=== PATIENT | female | born 1995 | race African-American/Black ===

== ENCOUNTER 2020-05-08 06:51 | Outpatient (NON) | payer OTHER, SELFPAY ==
[2020-05-08 17:22] LABS: SARS-CoV-2 RNA PCR Negative
== END 2020-05-08 06:52 ==
LOC: ANHCOVIDDT 06:58
PROVIDERS: PCP Physician Assistant; Visit Provider Physician Assistant
DX: R09.89 Other specified symptoms and signs involving the circulatory and respiratory systems (principal); Z20.828 Contact with and (suspected) exposure to other viral communicable diseases
CPT/HCPCS: 87635; C9803; U0003

== ENCOUNTER 2020-05-19 07:29 | Outpatient (CLI) | payer OTHER, SELFPAY ==
--- NOTE | 2020-06-04 10:46 | P.SLEEP_ITS ---
Sleep Study - Home Unattended Date of Study: 05/19/20 Ordering Provider: Interpreting Physician: Home Sleep Study Type: Watch PAT Height: 1.57 m Weight: 171.912 kg Body Mass Index: 69.2 Neck Circumference (inches): 19 [place]: 12 Reason for Sleep Study hypersomnia Sleep History excessive sleepiness. [place] score of 12. PMFSH Past Medical History Medical History (Updated 12/27/19 @ 10:32 by Sybil Roblero MD) Anemia Anxiety Bipolar 1 disorder Chronic shortness of breath Hypersomnia Morbid obesity Unspecified asthma Surgical History Surgical History (Updated 12/27/19 @ 10:19 by Sybil Roblero MD) History of tonsillectomy Family History Family History (Updated 08/18/16 @ 11:53 by DOCTOR UNKNOWN) Mother Diabetes mellitus Other Family history of malignant neoplasm Hypertension Social History Social History (Updated 12/27/19 @ 10:21 by Sybil Roblero MD) Social History: not employed, lives with her girlfriend Nevaeh, mother, grandmother, sister/ sister's girlfriend, 2 dogs and 4 rabbits, several family members smoke cigarettes Smoking status: Never smoker Alcohol intake: current Medications Home Medications Medication Instructions Recorded Confirmed Type albuterol sulfate 2.5 mg INHALATION Q6H 12/27/19 History albuterol sulfate 90 mcg/actuation 1 inhalation INHALATION Q4H PRN 30 12/27/19 12/27/19 Rx aerosol inhaler Days #8.5 gm budesonide-formoterol HFA 160 2 puff INHALATION Q12H 30 Days 12/27/19 12/27/19 Rx mcg-4.5 mcg/actuation aerosol #10.2 gm inhaler cholecalciferol (vitamin D3) 25 25 mcg PO DAILY 12/27/19 History mcg (1,000 unit) capsule montelukast 10 mg tablet 10 mg PO .hs 30 Days #30 tablet 03/05/20 Rx Sleep Procedure The home study was performed using watch pat device. Sleep Architecture Sleep study time 9: hours and 14 minutes. Total sleep time 8 hours and 3 minutes. Percentage of REM sleep 12.3%. Respiratory Analysis The respiratory indices-- AHI 16, RDI 25. RDI during REM sleep was 18.0 and non-REM sleep was 1.3. Supine events were more frequent as was the snoring. Oximetry Data Mean oxygen saturation was 97 minimum oxygen saturation 89. Desaturation index 16. Again desaturation was more common in REM sleep. Snoring Profile Snoring was present intermittently. As noted more common in supine sleep and during REM sleep. Cardiac Profile Pulse rate mean 80. Range 57 to 112. Assessment and Plan Additional Plan This 24-year-old female who has morbid obesity exhibits [id number] sleep disorder of obstructive type. The disorder is worse in supine REM sleep. Depending upon her daytime symptomatology and comorbid conditions consideration should be given to having this patient return for a full night polysomnographic evaluation. Given her morbid obesity also consider ruling out obesity hypoventilation syndrome. The treatment of this syndrome would require positive pressure assistance. Other measures such as aggressive weight loss, correction of upper airway obstruction if present and proper sleep hygiene will be off additional help.
--- NOTE | 2020-06-05 11:11 | P.SLEEP_ITS ---
[facility] Past Medical History Medical History (Updated 12/27/19 @ 10:32 by Sybil Roblero MD) Anemia Anxiety Bipolar 1 disorder Chronic shortness of breath Hypersomnia Morbid obesity Unspecified asthma Surgical History Surgical History (Updated 12/27/19 @ 10:19 by Sybil Roblero MD) History of tonsillectomy Family History Family History (Updated 08/18/16 @ 11:53 by DOCTOR UNKNOWN) Mother Diabetes mellitus Other Family history of malignant neoplasm Hypertension Social History Social History (Updated 12/27/19 @ 10:21 by Sybil Roblero MD) Social History: not employed, lives with her girlfriend Nevaeh, mother, grandmother, sister/ sister's girlfriend, 2 dogs and 4 rabbits, several family members smoke cigarettes Smoking status: Never smoker Alcohol intake: current Medications Home Medications Medication Instructions Recorded Confirmed Type albuterol sulfate 2.5 mg INHALATION Q6H 12/27/19 History albuterol sulfate 90 mcg/actuation 1 inhalation INHALATION Q4H PRN 30 12/27/19 12/27/19 Rx aerosol inhaler Days #8.5 gm budesonide-formoterol HFA 160 2 puff INHALATION Q12H 30 Days 12/27/19 12/27/19 Rx mcg-4.5 mcg/actuation aerosol #10.2 gm inhaler cholecalciferol (vitamin D3) 25 25 mcg PO DAILY 12/27/19 History mcg (1,000 unit) capsule montelukast 10 mg tablet 10 mg PO .hs 30 Days #30 tablet 03/05/20 Rx
[2020-06-05 11:58] VITALS: BMI 69.2
== END 2020-05-19 07:30 | disposition home or self-care (01) ==
LOC: ANHCSM 07:30
PROVIDERS: PCP Physician Assistant; Visit Provider Internal Medicine Critical Care Medicine
DX: G47.10 Hypersomnia, unspecified (principal)
CPT/HCPCS: 95800

== ENCOUNTER 2021-05-13 14:20 | Emergency (ER) | payer OTHER, SELFPAY ==
--- NOTE | ~2021-05-13 | XR_ITS ---
EXAMINATION: XR chest 2V DATE: 05/13/2021 16:01 INDICATION: Chronic cough and weakness TECHNIQUE: AP and lateral views of the chest are obtained. COMPARISON: 09/07/2017 FINDINGS: There are airspace opacities of the right middle and lower lobes. No pleural effusion or pn eumothorax is identified. The cardiomediastinal silhouette is normal. The visualized osseous structur es are unremarkable. IMPRESSION: 1. Right middle and lower lobe airspace opacities, likely pneumonia. Reviewed, dictated and finalized at location B. INE DISPATCHER
[2021-05-13 14:23] VITALS: BP 142/87; PULSE 82; RESP 20; TEMP 36.1; O2SAT 100
--- NOTE | 2021-05-13 15:09 | ECG_ITS ---
Measurements Intervals [place] Rate: 77 P: 36 GA: 161 QRS: 18 QRSD: 96 T: 0 QT: 372 QTc: 422 Interpretive Statements SINUS RHYTHM WITH SINUS ARRHYTHMIA NONSPECIFIC T-WAVE ABNORMALITY- ANTEROLAT/INF LEADS BASELINE ARTIFACT- I, II, III, AVR, AVL BORDERLINE ECG Electronically Signed On 05-13-2021 15:14:49 CLINICAL SERVICES SPECIALIST by Al Ojeda D.O.
--- NOTE | 2021-05-13 15:37 | ED.WEAKNESS ---
HPI - Weakness General Chief complaint: Weakness Stated complaint: weakness Time Seen by Provider: 05/13/21 15:25 Source: patient Mode of arrival: ambulatory Limitations: no limitations History of Present Illness HPI Narrative: This is a 25 year old female that presents to the ER for multiple complaints. Reports generalized weakness, abdominal pain, shortness of breath, dysuria, nausea and vomiting. Reports they have been ongoing for a couple of days. She was sent to the ED for further evaluation for blood work. Reports history of chronic anemia and that they were concerned she may need a transfusion. Denies fever, or chest pain. Related Data Home Medications Medication Instructions Recorded Confirmed albuterol sulfate 2.5 mg INHALATION Q6H 12/27/19 cholecalciferol (vitamin D3) 25 25 mcg PO DAILY 12/27/19 mcg (1,000 unit) capsule Allergies Allergy/AdvReac Type Severity Reaction Status Date / Time acetaminophen [From Vicodin] Allergy Mild rash Verified 12/27/19 09:13 codeine Allergy Mild Jittery Verified 12/27/19 09:13 hydrocodone [From Vicodin] Allergy Mild rash Verified 12/27/19 09:13 morphine Allergy Mild Itching Verified 12/27/19 09:13 oxycodone Allergy Mild Itching Verified 12/27/19 09:13 Review of Systems Review of Systems: CONSTITUTIONAL: Denies fever CARDIOVASCULAR: Denies chest pain, or edema. RESPIRATORY: Reports cough and dyspnea. GASTROINTESTINAL: Reports abdominal pain, nausea, vomiting GENITOURINARY: Reports dysuria NEUROLOGIC: Reports generalized weakness. All systems reviewed & are unremarkable except as noted in HPI and below PMFSH Past Medical History Medical History (Updated 05/13/21 @ 18:54 by Funmilayo Blankenship PA-C) Anemia Anxiety Bipolar 1 disorder Chronic shortness of breath Hypersomnia Morbid obesity Unspecified asthma Surgical History Surgical History (Updated 12/27/19 @ 10:19 by Sybil Roblero MD) History of tonsillectomy Family History Family History (Updated 08/18/16 @ 11:53 by DOCTOR UNKNOWN) Mother Diabetes mellitus Other Family history of malignant neoplasm Hypertension Social History Social History (Updated 12/27/19 @ 10:21 by Sybil Roblero MD) Social History: not employed, lives with her girlfriend Nevaeh, mother, grandmother, sister/ sister's girlfriend, 2 dogs and 4 rabbits, several family members smoke cigarettes Smoking status: Never smoker Alcohol intake: current Exam Narrative: GENERAL: Well-appearing, obese, and in no acute distress. HEAD: Normocephalic, atraumatic. EYES: PERRLA and EOMI. ENT: Nares clear, no rhinorrhea or epistaxis. Mucous membranes moist. Oropharynx without tonsillar hypertrophy exudate or other lesions. Bilateral TMs pearly parker non-bulging NECK: Supple. No adenopathy or masses. CHEST: Clear to auscultation. No respiratory distress. No wheezes rales or rhonchi HEART: Regular rate and rhythm. No murmur heard. Normal peripheral pulses. ABDOMEN: Soft, nontender, nondistended, normal active bowel sounds. No CVA tenderness EXTREMITIES: Normal range of motion. No edema. SKIN: Warm, dry, no rash. NEURO: No focal deficits. Alert and oriented x3. PSYCH: Normal mood and affect Course Vital Signs Vital signs: Vital Signs Temperature 96.9 F L 05/13/21 14:23 Pulse Rate 82 05/13/21 14:23 Respiratory Rate 20 05/13/21 14:23 Blood Pressure 142/87 H 05/13/21 14:23 Pulse Oximetry 100 05/13/21 14:23 Temperature 96.9 F L 05/13/21 14:23 Pulse Rate 82 05/13/21 14:23 Respiratory Rate 20 05/13/21 14:23 Blood Pressure 142/87 H 05/13/21 14:23 Pulse Oximetry 100 05/13/21 14:23 MDM - Weakness MDM Narrative Medical decision making narrative: Patient presents to the ER for generalized weakness. She is afebrile and nontoxic-appearing. Her vitals are stable. CBC is without leukocytosis. Does show microcytic anemia with hemoglobin of 10.7. Metabolic panel without concerning finding
[2021-05-13 15:54] LABS: Basophils Absolute Auto 0.1 K/mm3 (0.0-0.1); Basophils Percent Auto 0.7 % (0.2-1.2); Eosinophils Absolute Auto 0.2 K/mm3 (0-0.3); Eosinophils Percent Auto 1.6 % (0-4.4); Hematocrit 34.2 % (37.0-47.0); Hemoglobin 10.7 g/dL (12.0-15.0); Immature Granulocyte Absolute 0.03 K/mm3 (0.00-0.031); Immature Granulocyte Percent A 0.3 % (0-0.5); Lymphocytes Absolute Auto 3.49 K/mm3 (0.9-3.2); Lymphocytes Percent Auto 37.9 % (18.3-44.2); Mean Corpuscular HGB Conc 31.3 g/dl (32-36); Mean Corpuscular Hemoglobin 24.8 pg (26-34); Mean Corpuscular Volume 79.4 fl (80-100); Mean Platelet Volume 9.5 fl (7.4-10.4); Monocytes Absolute Auto 0.6 K/mm3 (0.1-0.6); Monocytes Percent Auto 6.1 % (2.6-8.5); Neutrophils Absolute Auto 4.9 K/mm3 (1.3-6.7); Neutrophils Percent Auto 53.4 % (45.5-73.1); Platelet Count Result 418 k/mm3 (150-375); Red Blood Count 4.31 M/mm3 (4.2-5.4); Red Cell Distribution Width 15.8 % (11.5-14.5); White Blood Count 9.2 K/mm3 (4.5-10.0)
[2021-05-13 16:12] LABS: Alanine Aminotransferase 16 U/L (4-35); Albumin Level 3.9 g/dL (3.5-5.1); Alkaline Phosphatase 57 U/L (38-126); Anion Gap 4 mmol/L (8-16); Aspartate Amino Transferase 23 U/L (14-36); Bilirubin,Total 0.4 mg/dL (0.2-1.3); Blood Urea Nitrogen 9 mg/dL (7-17); Calcium 8.8 mg/dL (8.4-10.2); Carbon Dioxide 30 mmol/L (22-30); Chloride 105 mmol/L (98-107); Estimated CRCL calculation 140 ml/min; Estimated Glomerular Filt Rate > 60; Glucose 102 mg/dL (65-110); Sodium 139 mmol/L (137-145)
[2021-05-13 16:33] LABS: Lipase 40 U/L (23-300)
[2021-05-13 16:43] LABS: NT Pro B Type Natriuretic Pept 85 pg/mL (5-100)
[2021-05-13 16:56] LABS: Add Urine Microscopic? YES; Appearance Urine Cloudy (Clear); Bacteria Urine Trace /hpf; Bilirubin Urine 1+ (Negative); Blood Urine Negative (Negative); Color Urine Yellow (Yellow); Glucose Urine UA Negative (Negative); Ketones Urine Negative (Negative); Leukocyte Esterase Ur Trace LEU/UL (Negative); Mucus Urine Few /lpf; Nitrate Urine Negative (Negative); Protein Urine 2+ mg/dL (Negative); Squamous Epithelial Cell Urine Many /hpf (Few); Urobilinogen Urine Negative mg/dL (<2.0)
[2021-05-13] MEDS: SODIUM CHLORIDE 0.9% IV 500 ML 999 ML IV CONT (16:56)
[2021-05-13] MEDS: ONDANSETRON INJ 4 MG/2 ML VIAL IV PUSH (16:56)
[2021-05-13 17:00] LABS: Specific Grav Ur 1.036 (1.001-1.035)
[2021-05-13 18:54] VITALS: BP 107/74; PULSE 63; RESP 16; O2SAT 100
[2021-05-13 19:31] VITALS: BP 119/86; PULSE 85; RESP 18; TEMP 36.6; O2SAT 100
== END 2021-05-13 19:34 | disposition home or self-care (01) ==
PROVIDERS: Emergency Medicine; Physician Assistant; Emergency Provider Emergency Medicine; PCP Physician Assistant
DX: J18.9 Pneumonia, unspecified organism (principal); D64.9 Anemia, unspecified; F41.9 Anxiety disorder, unspecified; F31.9 Bipolar disorder, unspecified; J45.909 Unspecified asthma, uncomplicated
CPT/HCPCS: 36415; 71046; 80053; 81001; 81025; 83690; 83880; 84443; 85025; 86850; 86900; 86901; 87086; 87088; 93005; 96361; 96374; 99284; J2405; J7040

== ENCOUNTER 2021-05-20 17:49 | Emergency (ER) | payer OTHER, SELFPAY ==
--- NOTE | ~2021-05-20 | XR_ITS ---
EXAMINATION: XR chest 2V DATE: 05/20/2021 18:32 INDICATION: Chest pain TECHNIQUE: frontal and lateral views of the chest were obtained. COMPARISON: Chest radiograph dated 05/13/2021 FINDINGS: The lungs remain clear with no focal airspace opacities, pulmonary edema, pleural effusion or pneumot horax. The cardiomediastinal silhouette is normal. Visualized bones and soft tissues are unremarkable . IMPRESSION: 1. No acute cardiopulmonary disease. Reviewed, dictated and finalized at location A. ARE ELIGIBILITY INTERVIEWER
--- NOTE | 2021-05-20 17:59 | ECG_ITS ---
Measurements Intervals [place] Rate: 89 P: 31 SD: 139 QRS: 19 QRSD: 91 T: 0 QT: 351 QTc: 428 Interpretive Statements SINUS RHYTHM WITH SINUS ARRHYTHMIA DELAYED PRECORDIAL R/S TRANSITION BORDERLINE T WAVE ABNORMALITY- INFERIOR LEADS BASELINE WANDER- V3 BORDERLINE ECG Electronically Signed On 05-20-2021 19:54:14 PANELBOARD OPERATOR by Al Ojeda D.O.
[2021-05-20 18:00] VITALS: BP 141/89; PULSE 92; RESP 22; TEMP 36.8; O2SAT 100
[2021-05-20] MEDS: KETOROLAC 30 MG/ML VIAL (*BKC) IV PUSH (18:40)
[2021-05-20 18:53] LABS: Hematocrit 35.5 % (37.0-47.0); Hemoglobin 11.1 g/dL (12.0-15.0); Mean Corpuscular HGB Conc 31.3 g/dl (32-36); Mean Platelet Volume 9.7 fl (7.4-10.4); Platelet Count Result 479 k/mm3 (150-375); Red Blood Count 4.44 M/mm3 (4.2-5.4); Red Cell Distribution Width 15.7 % (11.5-14.5); White Blood Count 13.2 K/mm3 (4.5-10.0)
[2021-05-20 18:58] LABS: Prothrombin Time 13.2 Seconds (11.1-14.7)
[2021-05-20 18:59] LABS: Partial Thromboplastin Time 28.1 SECONDS (22.3-36.8)
[2021-05-20 19:00] LABS: Anion Gap 7 mmol/L (8-16); Blood Urea Nitrogen 6 mg/dL (7-17); Carbon Dioxide 26 mmol/L (22-30); Chloride 101 mmol/L (98-107); Estimated CRCL calculation 153 ml/min; Estimated Glomerular Filt Rate > 60; Glucose 98 mg/dL (65-110); Potassium 4.2 mmol/L (3.4-5.0); Sodium 134 mmol/L (137-145)
[2021-05-20 19:13] LABS: Troponin I < 0.012 ng/mL (0.000-0.034)
[2021-05-20 19:28] LABS: Lymphocytes Absolute Manual 3.69 K/mm3 (1.1-4.5); Lymphocytes Percent Manual 28 % (18-44); Monocytes Absolute Manual 1.18 K/mm3 (0.1-0.90); Monocytes Percent Manual 9 % (3-9); Neutrophils Percent Manual 63 % (46-73); Platelet Estimate Adequate (Adequate); Total Cells Counted 100
--- NOTE | 2021-05-20 19:46 | ED.GENADULT ---
HPI - General Adult General Chief complaint: Shortness of Breath/Dyspnea Stated complaint: Chest pain Time Seen by Provider: 05/20/21 17:51 History of Present Illness HPI narrative: Patient is a 25-year-old female who presents ER with chest pain. Center of her chest. Worse with coughing and palpation. Recently diagnosed with pneumonia and had been on Augmentin and azithromycin. No decrease in her ability to breathe. Reports she still had some fevers. Patient reports she has no nausea vomiting or abdominal discomfort. No new rash. Patient has been taking 200 mg ibuprofen 4 times a day without relief of pain. Related Data Home Medications Medication Instructions Recorded Confirmed albuterol sulfate 2.5 mg INHALATION Q6H 12/27/19 cholecalciferol (vitamin D3) 25 25 mcg PO DAILY 12/27/19 mcg (1,000 unit) capsule Allergies Allergy/AdvReac Type Severity Reaction Status Date / Time acetaminophen [From Vicodin] Allergy Mild rash Verified 12/27/19 09:13 codeine Allergy Mild Jittery Verified 12/27/19 09:13 hydrocodone [From Vicodin] Allergy Mild rash Verified 12/27/19 09:13 morphine Allergy Mild Itching Verified 12/27/19 09:13 oxycodone Allergy Mild Itching Verified 12/27/19 09:13 Review of Systems Review of Systems: All systems reviewed & are unremarkable except as noted in HPI and below Constitutional: Constitutional: Denies chills, Reports fatigue and Reports fever(s) ENT: Denies nasal congestion and Denies sore throat Cardiovascular: Cardiovascular: Reports chest pain, Denies rapid heart rate and Denies radiating jaw, neck or arm pain Respiratory: Respiratory: Reports cough, Denies dyspnea and Denies wheezing Gastrointestinal: Gastrointestinal: Denies abdominal pain, Denies diarrhea, Denies nausea and Denies vomiting Neurologic: Denies headache(s), Denies focal weakness and Denies numbness PMFSH Past Medical History Medical History (Updated 05/20/21 @ 19:52 by Nestor Fletcher MD) Anemia Anxiety Bipolar 1 disorder Chronic shortness of breath Hypersomnia Morbid obesity Unspecified asthma Surgical History Surgical History (Updated 12/27/19 @ 10:19 by Sybil Roblero MD) History of tonsillectomy Family History Family History (Updated 08/18/16 @ 11:53 by DOCTOR UNKNOWN) Mother Diabetes mellitus Other Family history of malignant neoplasm Hypertension Social History Social History (Updated 12/27/19 @ 10:21 by Sybil Roblero MD) Social History: not employed, lives with her girlfriend Nevaeh, mother, grandmother, sister/ sister's girlfriend, 2 dogs and 4 rabbits, several family members smoke cigarettes Smoking status: Never smoker Alcohol intake: current Exam Narrative: GENERAL: Well-appearing, morbidly obese, and in no acute distress. HEAD: Normocephalic, atraumatic. ENT: Mucous membranes moist. CHEST: Clear to auscultation. No respiratory distress. Tender palpation of her central chest with light palpation. HEART: Regular rate and rhythm. Normal peripheral pulses. ABDOMEN: Soft, nontender, nondistended. EXTREMITIES: Normal range of motion. No edema. SKIN: Warm, dry, no rash. NEURO: Alert and oriented x3. PSYCH: Normal mood and affect. Course Course Emergency Course: Pain decreased with Toradol. Informed results. Discharge home. Symptoms felt to be musculoskeletal in nature related to her coughing. No evidence of ischemia on EKG. Vital Signs Vital signs: Vital Signs Temperature 98.2 F 05/20/21 18:00 Pulse Rate 92 05/20/21 18:00 Respiratory Rate 22 H 05/20/21 18:00 Blood Pressure 141/89 H 05/20/21 18:00 Pulse Oximetry 100 05/20/21 18:00 Temperature 98.2 F 05/20/21 18:00 Pulse Rate 92 05/20/21 18:00 Respiratory Rate 22 H 05/20/21 18:00 Blood Pressure 141/89 H 05/20/21 18:00 Pulse Oximetry 100 05/20/21 18:00 Medical Decision Making Vital Signs Vital Signs: Vital Signs Temperature 98.2 F 05/20/21 18:00
[2021-05-20 20:17] VITALS: BP 135/76; PULSE 85; RESP 16; O2SAT 100
== END 2021-05-20 20:04 | disposition home or self-care (01) ==
PROVIDERS: Emergency Provider Emergency Medicine; PCP Physician Assistant
DX: R07.89 Other chest pain (principal); F41.9 Anxiety disorder, unspecified; F31.9 Bipolar disorder, unspecified; J45.909 Unspecified asthma, uncomplicated
CPT/HCPCS: 36415; 71046; 80048; 84484; 85025; 85610; 85730; 93005; 96374; 99284; J1885

== ENCOUNTER 2021-07-13 13:25 | Emergency (ER) | payer OTHER, SELFPAY ==
[2021-07-13 13:37] VITALS: BP 143/83; PULSE 115; RESP 18; TEMP 37.8; O2SAT 100
--- NOTE | 2021-07-13 13:59 | ED.URI ---
HPI - URI/Sore Throat General Chief Complaint: Upper Respiratory Infection Stated Complaint: sore throat Time Seen by Provider: 07/13/21 14:06 Source: patient Mode of arrival: ambulatory Limitations: no limitations History of Present Illness HPI Narrative: 25-year-old female presenting for complaint of sore throat for about 3 days she also endorses fever from 100-102, occasional cough and hoarse voice with sinus congestion. She has a history of strep. Has been taking Mucinex and Tylenol for symptoms. Denies shortness of breath, chest pain, palpitations, nausea, vomiting, diarrhea. She is vaccinated for COVID and waiting for her booster. denies sick contacts. MD elicited complaint: cough and sore throat Related Data Home Medications Medication Instructions Recorded Confirmed cholecalciferol (vitamin D3) 25 25 mcg PO DAILY 12/27/19 07/13/21 mcg (1,000 unit) capsule Allergies Allergy/AdvReac Type Severity Reaction Status Date / Time acetaminophen [From Vicodin] Allergy Mild rash Verified 07/13/21 13:52 codeine Allergy Mild Jittery Verified 07/13/21 13:52 hydrocodone [From Vicodin] Allergy Mild rash Verified 07/13/21 13:52 morphine Allergy Mild Itching Verified 07/13/21 13:52 oxycodone Allergy Mild Itching Verified 07/13/21 13:52 Review of Systems Review of Systems: CONSTITUTIONAL: Endorses malaise, chills, sweats, fever. EYES: Denies visual changes, redness, or discharge. ENT: Reports rhinorrhea, congestion, sinus pain, otalgia and sore throat. CARDIOVASCULAR: Denies chest pain, palpitations, or edema. RESPIRATORY: Reports cough, post nasal drainage. Denies dyspnea. GASTROINTESTINAL: Denies abdominal pain, nausea, vomiting, diarrhea SKIN: Denies rash or itching. MUSCULOSKELETAL: Denies myalgia. NEUROLOGIC: Denies headache. [facility] Past Medical History Medical History Anemia Anxiety Bipolar 1 disorder Chronic shortness of breath Diabetes Headache, migraine Hypersomnia Morbid obesity Unspecified asthma Surgical History Surgical History History of tonsillectomy Family History Family History Mother Diabetes mellitus Other Alcoholism Anxiety Cancer Depression Family history of malignant neoplasm Hypertension Social History Social History Social History: not employed, lives with her girlfriend Nevaeh, mother, grandmother, sister/ sister's girlfriend, 2 dogs and 4 rabbits, several family members smoke cigarettes Smoking status: Never smoker Alcohol intake: current Comments At time of signature, I have reviewed and agree with nursing past medical, surgical, social and family history unless otherwise noted. Please see nursing chart for further information. There is no relevant family history pertinent to the presenting complaint Exam Narrative: GENERAL: Ill-appearing, no acute distress. HEAD: Normocephalic EYES: PERRLA, conjunctivae clear ENT: Mucous membranes moist. TM pearly parker with dull light reflex bilaterally, bilat effusions; no tragal tenderness. Oropharynx erythematous without lesions. Tonsils enlarged and without exudate, no drooling, no hoarseness, no trismus, uvula midline. NECK: Supple. left anterior cervical lymphadenopathy CHEST: Clear to auscultation, breath sounds equal. No wheezing, rhonchi, rales, or stridor. No respiratory distress, speaks in full sentences. HEART: Regular rate and rhythm. No murmur heard. SKIN: Warm, dry, no rash. NEURO: Alert and oriented x3. PSYCH: Normal mood and affect Course Course Emergency Course: Strep negative. Patient is aware of diagnosis, understands and agrees to treatment plan. Anticipatory guidance given. Patient agrees to follow-up as directed and is aware of reasons to seek care at the emergency
[2021-07-13 14:35] LABS: Glucose Point of Care 93 mg/dl (65-105)
--- NOTE | 2021-07-13 15:45 | PC.NURSE ---
1420- addendum-- pt passed out while in girlfriends treatment room while another RN was in discharging the girlfriend, pt became lightheaded and diaphoretic, and then laid her head over to the girlfriend. Other RN grabbed the PATIENT CARE and ems called since she was already discharged from our care. pt after approx 30 secs opened eyes, stated that she was just a little bit dizzy feeling and stated that she had not eaten most of the day. ems coming through the back door, since they were across the street when paged out. pt left in care of ems in AxOx3 condition. we didnt do a transfer since she was already discharged from our care.
== END 2021-07-13 14:14 | disposition home or self-care (01) ==
PROVIDERS: Emergency Provider Nurse Practitioner Family
DX: J00 Acute nasopharyngitis [common cold] (principal); J01.90 Acute sinusitis, unspecified; E11.9 Type 2 diabetes mellitus without complications; E66.01 Morbid (severe) obesity due to excess calories; Z68.44 Body mass index [BMI] 60.0-69.9, adult; J45.909 Unspecified asthma, uncomplicated
CPT/HCPCS: 82948; 87081; 87880; 99213; G0463

== ENCOUNTER 2021-07-13 15:04 | Emergency (ER) | payer OTHER, SELFPAY ==
--- NOTE | 2021-07-13 15:09 | PC.NURSE ---
pt made aware of dept status. i dont know if i want to wait that long
[2021-07-13 15:14] VITALS: BP 141/77; PULSE 96; RESP 17; TEMP 36.6; O2SAT 100
== END 2021-07-13 15:09 | disposition left against medical advice (07) ==
DX: R55 Syncope and collapse (principal)
CPT/HCPCS: 99199

== ENCOUNTER 2021-08-12 01:44 | Day surgery (SDC) | payer OTHER, SELFPAY ==
[2021-08-10 13:03] VITALS: BMI 67.9
[2021-08-12 07:29] VITALS: BP 128/87; PULSE 87; RESP 17; TEMP 36; O2SAT 99; BMI 70.1
[2021-08-12] MEDS: LACTATED RINGERS 1,000 ML 150 ML IV CONT (07:31)
--- NOTE | 2021-08-12 08:07 | WPDANESEPPF ---
Anes - Initial Pre Proc Eval Procedure: Operation Date: 08/12/21 08:30 Proposed Procedures p Esophagogastroduodenoscopy - Александр Gimenez MD Date/Time: 08/12/21 08:08 Surgeon: Александр Gimenez MD Pre Op Diagnosis: GERD Patient Data Age: 25 Gender: F Height: 1.57 m Weight: 174 kg Last Vital Signs Temp 96.8 F L 08/12/21 07:29 Pulse 87 08/12/21 07:29 Resp 17 08/12/21 07:29 BP 128/87 08/12/21 07:29 Pulse Ox 99 08/12/21 07:29 Allergies Allergy/AdvReac Type Severity Reaction Status Date / Time acetaminophen [From Vicodin] Allergy Mild rash Verified 08/12/21 07:27 codeine Allergy Mild Jittery Verified 08/12/21 07:27 hydrocodone [From Vicodin] Allergy Mild rash Verified 08/12/21 07:27 morphine Allergy Mild Itching Verified 08/12/21 07:27 oxycodone Allergy Mild Itching Verified 08/12/21 07:27 Home Medications Medication Instructions Recorded Confirmed Type famotidine [Pepcid] 40 mg PO DAILY 08/10/21 08/12/21 History ondansetron 8 mg TRANSLINGUAL Q4-6H 08/10/21 08/12/21 History Patient hx anesthesia problems: none Family hx anesthesia problems: none Results Review: All pre-operative results and documents have been reviewed as part of the pre-operative evaluation. [facility] Past Medical History Medical History Anemia Anxiety Bipolar 1 disorder Chronic shortness of breath Diabetes Headache, migraine Hypersomnia Morbid obesity Unspecified asthma Surgical History Surgical History History of tonsillectomy Family History Family History Mother Diabetes mellitus Other Alcoholism Anxiety Cancer Depression Family history of malignant neoplasm Hypertension Social History Social History Social History: not employed, lives with her girlfriend Nevaeh, mother, grandmother, sister/ sister's girlfriend, 2 dogs and 4 rabbits, several family members smoke cigarettes Smoking status: Former smoker Tobacco type: e-cigarettes/vaping Alcohol intake: current Drinks per week: 2 Substance use: never Substance use type: does not use Living arrangements: with family Spiritual care concerns: No Anes - Eval Final PreProcedure Day of Procedure 08/12/21 08:08 Patient weight: super morbidly obese (super super morbid obesity) Heart: regular rate and rhythm Lungs: clear to auscultation Airway: Mallampati scale class III Neurological: alert and oriented Last oral intake: >/= 8 hours ASA classification: IV Emergent: no Anesthetic plan: proceed Anesthesia type and monitoring: general GIVS and standard monitoring Results Review: All pre-operative results and documents have been reviewed as part of the pre-operative evaluation. Informed Consent: The patient's anesthetic plan and its attendant risks and benefits were discussed with the patient/family/POA. Questions were solicited and answers provided to the satisfaction of the patient/family/POA.
--- NOTE | 2021-08-12 08:24 | PM.HPGS ---
History of Present Illness History of Present Illness Consent: Risks, benefits, and alternatives have been discussed and questions answered. Patient agrees to proceed with procedure. Chief complaint: GERD Narrative: Jessica Flores is a 25 year old female with morbid obesity, DM here with nausea using pepcid and zofran as needed, never had egd Review of Systems Constitutional: Constitutional: Denies headache(s) and Denies weakness Eyes: Eyes: Denies blurry vision ENT: Reports Normal hearing present, Denies headache(s) and Denies neck pain Cardiovascular: Cardiovascular: Denies chest pain and Denies dyspnea Respiratory: Respiratory: Denies dyspnea Gastrointestinal: Gastrointestinal: Reports no additional gastrointestinal complaints Genitourinary: Genitourinary: Denies dysuria Musculoskeletal: Musculoskeletal: Denies neck pain Integumentary/Breasts: Skin/Breast: Denies dry skin Neurologic: Reports Normal hearing present, Denies headache(s) and Denies weakness Psychiatric: Psychiatric: Denies anxiety Endocrine: Endocrine: Denies change in body appearance Hematologic/Lymphatic: Hematologic/Lymphatic: Denies easy bleeding Allergic/Immunologic: Allergic/Immunologic: Denies urticaria PMFSH Past Medical History Medical History (Updated 08/12/21 @ 08:25 by Александр Gimenez MD) Anemia Anxiety Bipolar 1 disorder Chronic shortness of breath Diabetes Headache, migraine Hypersomnia Morbid obesity Nausea Unspecified asthma Surgical History Surgical History History of tonsillectomy Family History Family History Mother Diabetes mellitus Other Alcoholism Anxiety Cancer Depression Family history of malignant neoplasm Hypertension Social History Social History Social History: not employed, lives with her girlfriend Nevaeh, mother, grandmother, sister/ sister's girlfriend, 2 dogs and 4 rabbits, several family members smoke cigarettes Smoking status: Former smoker Tobacco type: e-cigarettes/vaping Alcohol intake: current Drinks per week: 2 Substance use: never Substance use type: does not use Living arrangements: with family Spiritual care concerns: No Meds Home Medications and Allergies Home Medications Medication Instructions Recorded Confirmed Type famotidine [Pepcid] 40 mg PO DAILY 08/10/21 08/12/21 History ondansetron 8 mg TRANSLINGUAL Q4-6H 08/10/21 08/12/21 History Allergies Allergy/AdvReac Type Severity Reaction Status Date / Time acetaminophen [From Vicodin] Allergy Mild rash Verified 08/12/21 07:27 codeine Allergy Mild Jittery Verified 08/12/21 07:27 hydrocodone [From Vicodin] Allergy Mild rash Verified 08/12/21 07:27 morphine Allergy Mild Itching Verified 08/12/21 07:27 oxycodone Allergy Mild Itching Verified 08/12/21 07:27 Vital Signs Vital Signs - 24 hr 08/12/21 07:29 Temperature 96.8 F L Pulse Rate 87 Respiratory Rate 17 Blood Pressure 128/87 Pulse Oximetry 99 Exam Const: General: comfortable and no acute distress Nutritional Appearance: obese HENMT: General nose exam: Normal nares present Eyes: General: appearance normal, both eyes and all related structures Neck: Neck: no JVD Resp: Auscultation: clear to auscultation bilaterally Cardio: Rate: regular rate Rhythm: regular rhythm GI: Inspection: non-distended GI Palp: Yes Soft to palpation Skin: General skin exam: normal color Neuro: General: gait normal Speech: normal speech Extrem: General: normal to inspection Psych: Mental Status: mental status grossly normal Assessment and Plan Assessment and plan (1) Nausea: Code(s): R11.0 - Nausea Status: Acute Assessment and Plan: egd with bx, assess if esophagitis, ulcers also could be from dysmotility,
[2021-08-12 09:00] VITALS: BP 115/74; PULSE 91; RESP 23; O2SAT 98
[2021-08-12 09:10] VITALS: BP 118/77; PULSE 86; RESP 19; O2SAT 99
[2021-08-12 09:20] VITALS: BP 120/66; PULSE 71; RESP 22; O2SAT 100
== END 2021-08-12 09:35 | disposition home or self-care (01) ==
PROVIDERS: PCP Family Medicine; Visit Provider Internal Medicine Gastroenterology
PROC: 0DJ08ZZ Inspection of Upper Intestinal Tract, Via Natural or Artificial Opening Endoscopic (ICD-10-PCS; CPT 43235; principal; 2021-08-12 08:30)
DX: K29.50 Unspecified chronic gastritis without bleeding (principal); E11.9 Type 2 diabetes mellitus without complications; Z87.891 Personal history of nicotine dependence; E66.01 Morbid (severe) obesity due to excess calories; Z68.45 Body mass index [BMI] 70 or greater, adult
CPT/HCPCS: 43239; 88305; J2704; J7120

== ENCOUNTER 2022-03-17 12:27 | Emergency (ER) | payer OTHER, SELFPAY ==
[2022-03-17] VITALS (9 sets, daily range): BP systolic 90–150; BP diastolic 54–100; PULSE 82–96; RESP 15–22; TEMP 37; O2SAT 96–100
--- NOTE | ~2022-03-17 | US_ITS ---
EXAMINATION: US pelvic complete w TV DATE: 03/17/2022 16:48 INDICATION: Vaginal bleeding. TECHNIQUE: Multiple transabdominal and transvaginal sonographic images of the pelvis were obtained. COMPARISON: CT abdomen and pelvis 03/17/2022 FINDINGS: TRANSABDOMINAL ULTRASOUND: The uterus measures 7.3 x 2.9 x 4.4 cm. There is no free fluid in the pelvis. TRANSVAGINAL ULTRASOUND: The endometrial complex measures 5 mm in thickness. The right ovary measures 3.7 x 4.4 x 3.4 cm. Ther e is a 4.2 cm cyst with low-level echoes in right ovary. The left ovary measures 2.4 x 1.6 x 1.9 cm. There is normal vascular flow in the ovaries. IMPRESSION: 1. 4.2 cm hemorrhagic cyst in right ovary. Reviewed, dictated and finalized at location A.
--- NOTE | ~2022-03-17 | CT_ITS ---
EXAMINATION: CT abdomen pelvis w con DATE: 03/17/2022 15:04 INDICATION: Abdominal pain. Vaginal bleeding. TECHNIQUE: Computed tomography (CT) of the abdomen and pelvis was performed with 100 mL Omnipaque 350 intravenous contrast. Automated exposure control and iterative reconstruction technique were employe d. The dose-length product was 1598.79 mGy-cm. COMPARISON: CT abdomen and pelvis 07/30/2017 FINDINGS: The visualized portions of the lung bases are clear without pneumonia or pleural effusion. The heart size is normal. No pericardial effusion. The liver is normal. The gallbladder is absent. Th e spleen, pancreas, adrenal glands, and kidneys are normal. There is a 2.8 cm dominant follicle in ri ght ovary. There are no dilated loops of bowel. The appendix is not visualized. There are no patholog ically enlarged lymph nodes. There is no free intraperitoneal fluid. There is screw fixation of proxi mal right femur. IMPRESSION: 1. No specific etiology for the patient's symptoms. Reviewed, dictated and finalized at location A.
--- NOTE | 2022-03-17 12:34 | ECG_ITS ---
Measurements Intervals Allison Rate: 92 P: 39 IA: 142 QRS: 22 QRSD: 82 T: 1 QT: 345 QTc: 428 Interpretive Statements SINUS RHYTHM BORDERLINE T WAVE ABNORMALITY- INFERIOR LEADS BORDERLINE ECG COMPARED TO ECG 05/20/2021 18:02:24 NO SIGNIFICANT CHANGES Electronically Signed On 03-17-2022 14:36:20 CDT by Al Ojeda D.O.
[2022-03-17 12:53] LABS: Basophils Absolute Auto 0.1 K/mm3 (0.0-0.1); Basophils Percent Auto 0.5 % (0.2-1.2); Eosinophils Absolute Auto 0.1 K/mm3 (0-0.3); Eosinophils Percent Auto 0.7 % (0-4.4); Hematocrit 28.2 % (37.0-47.0); Hemoglobin 8.4 g/dL (12.0-15.0); Immature Granulocyte Absolute 0.04 K/mm3 (0.00-0.031); Immature Granulocyte Percent A 0.4 % (0-0.5); Lymphocytes Absolute Auto 3.45 K/mm3 (0.9-3.2); Lymphocytes Percent Auto 33.4 % (18.3-44.2); Mean Corpuscular HGB Conc 29.8 g/dl (32-36); Mean Corpuscular Hemoglobin 23.4 pg (26-34); Mean Corpuscular Volume 78.6 fl (80-100); Mean Platelet Volume 9.4 fl (7.4-10.4); Monocytes Absolute Auto 0.5 K/mm3 (0.1-0.6); Neutrophils Absolute Auto 6.2 K/mm3 (1.3-6.7); Platelet Count Result 412 k/mm3 (150-375); Red Blood Count 3.59 M/mm3 (4.2-5.4); Red Cell Distribution Width 16.1 % (11.5-14.5); White Blood Count 10.3 K/mm3 (4.5-10.0)
[2022-03-17 13:06] LABS: Alanine Aminotransferase 15 U/L (6-35); Alkaline Phosphatase 50 U/L (38-126); Anion Gap 11 mmol/L (8-16); Aspartate Amino Transferase 16 U/L (14-36); Bilirubin,Total 0.3 mg/dL (0.2-1.3); Blood Urea Nitrogen 9 mg/dL (7-17); Calcium 8.8 mg/dL (8.4-10.2); Carbon Dioxide 21 mmol/L (22-30); Chloride 105 mmol/L (98-107); Estimated CRCL calculation 168 ml/min; Estimated Glomerular Filt Rate > 60; Glucose 113 mg/dL (65-110); Sodium 137 mmol/L (137-145)
[2022-03-17 13:32] LABS: SPREG INTERNAL CONTROL Positive; Serum Qual hCG Negative
[2022-03-17 13:49] LABS: Anisocytosis 1+ (NORMAL); Hypochromasia 1+ (NORMAL); Microcytosis 1+ (NORMAL); Ovalocytes 1+ (NORMAL); Platelet Estimate Increased (Adequate)
--- NOTE | 2022-03-17 14:13 | ED.GENADULT ---
HPI - General Adult General Chief complaint: Vaginal Bleeding Stated complaint: vaginal bleeding, near syncope Time Seen by Provider: 03/17/22 13:00 History of Present Illness HPI narrative: 26-year-old female with a past medical history of PCOS presents for evaluation of heavier than normal menstrual cycle, diffuse abdominal pain and general malaise. Patient states she experiences pain all over her abdomen which radiates to her back. It is mainly in her lower abdomen and lower back. The pain is constant but worsens in waves of intensity. She has gone through 6 pads today. Related Data Home Medications Medication Instructions Recorded Confirmed famotidine 40 mg tablet (Pepcid) 40 mg PO DAILY 08/10/21 08/12/21 ondansetron 8 mg disintegrating 8 mg translingual Q4-6H 08/10/21 08/12/21 tablet Allergies Allergy/AdvReac Type Severity Reaction Status Date / Time codeine Allergy Mild Jittery Verified 03/22/22 09:39 hydrocodone [From Vicodin] Allergy Mild rash Verified 03/22/22 09:39 morphine Allergy Mild Itching Verified 03/22/22 09:39 oxycodone Allergy Mild Itching Verified 03/22/22 09:39 Review of Systems Review of Systems: CONSTITUTIONAL: Denies fever, chills, or sweats. EYES: Denies visual changes, redness, or discharge. ENT: Denies rhinorrhea, congestion, sore throat, or otalgia. CARDIOVASCULAR: Denies chest pain, palpitations, or edema. RESPIRATORY: Denies cough or dyspnea. GASTROINTESTINAL: Denies abdominal pain, nausea, vomiting, or diarrhea. GENITOURINARY: Denies dysuria or hematuria. SKIN: Denies rash or itching. MUSCULOSKELETAL: Denies back pain, joint pain, or myalgia. NEUROLOGIC: Denies headache, numbness, or weakness. PSYCHIATRIC: Denies anxiety or depression. [facility] Past Medical History Medical History Anemia Anxiety Bipolar 1 disorder Chronic shortness of breath Diabetes Headache, migraine Hypersomnia Morbid obesity Nausea PCOS (polycystic ovarian syndrome) Unspecified asthma Surgical History Surgical History History of tonsillectomy Family History Family History Mother Diabetes mellitus Other Alcoholism Anxiety Cancer Depression Family history of malignant neoplasm Hypertension Social History Social History Social History: not employed, lives with her girlfriend Nevaeh, mother, grandmother, sister/ sister's girlfriend, 2 dogs and 4 rabbits, several family members smoke cigarettes Smoking status: Former smoker Tobacco type: e-cigarettes/vaping Alcohol intake: current Drinks per week: 2 Substance use: never Substance use type: does not use Spiritual care concerns: No Exam Narrative: GENERAL: Well-appearing, morbidly obese, well-nourished, and in no acute distress. HEAD: Normocephalic, atraumatic. EYES: PERRLA and EOMI. ENT: Nares clear, no rhinorrhea or epistaxis. Mucous membranes moist. NECK: Supple. CHEST: Clear to auscultation. No respiratory distress. HEART: Regular rate and rhythm. No murmur heard. Normal peripheral pulses. ABDOMEN: Soft, nontender, nondistended, normal active bowel sounds. EXTREMITIES: Normal range of motion. No edema. SKIN: Warm, dry, no rash. NEURO: No focal deficits. Alert and oriented x3. PSYCH: Normal mood and affect. Course Vital Signs Vital signs: Vital Signs Temperature 98.6 F 03/17/22 12:31 Pulse Rate 90 03/17/22 12:31 Respiratory Rate 16 03/17/22 12:31 Blood Pressure 145/100 H 03/17/22 12:31 Pulse Oximetry 100 03/17/22 12:31 Oxygen Delivery Room Air 03/17/22 12:31 Temperature 98.6 F 03/17/22 12:31 Pulse Rate 82 03/17/22 18:00 Respiratory Rate 20 03/17/22 18:00 Blood Pressure 110/77 03/17/22 18:00 Pulse Oximetry 100 03/17/22 18:00 Oxyg
[2022-03-17 14:26] LABS: Lactic Acid Reflex 0.9 mmol/L (0.7-2.0)
[2022-03-17 14:28] LABS: Add Urine Microscopic? YES; Appearance Urine Cloudy (Clear); Bilirubin Urine 1+ (Negative); Blood Urine 3+ (Negative); Color Urine Red (Yellow); Glucose Urine UA Negative (Negative); Ketones Urine Trace mg/dL (Negative); Leukocyte Esterase Ur 3+ LEU/UL (Negative); Nitrate Urine Positive (Negative); Protein Urine 3+ mg/dL (Negative); Specific Grav Ur >= 1.030 (1.001-1.035); Urobilinogen Urine 0.2 mg/dL (<2.0)
[2022-03-17 14:51] LABS: Mucus Urine Rare /lpf; RBC Urine >75 /hpf (0-2)
[2022-03-17] MEDS: SODIUM CHLORIDE 0.9% IV 500 ML 999 ML IV CONT (14:51)
[2022-03-17] MEDS: HYDROmorphone HCL INJ (*CRX) 1 MG/ML SYR 0.5 MG IV PUSH (14:52)
== END 2022-03-17 18:00 | disposition home or self-care (01) ==
PROVIDERS: Emergency Provider Emergency Medicine; PCP Family Medicine
DX: E28.2 Polycystic ovarian syndrome (principal); D64.9 Anemia, unspecified; E11.9 Type 2 diabetes mellitus without complications; J45.909 Unspecified asthma, uncomplicated; E66.01 Morbid (severe) obesity due to excess calories; Z68.44 Body mass index [BMI] 60.0-69.9, adult; R94.31 Abnormal electrocardiogram [ECG] [EKG]
CPT/HCPCS: 36415; 74177; 76830; 76856; 80053; 81001; 83605; 84703; 85025; 87086; 87088; 93005; 96361; 96374; 99284; J1170; J7040; Q9967

== ENCOUNTER 2022-03-22 09:09 | Emergency (ER) | payer OTHER, SELFPAY ==
[2022-03-22] VITALS (12 sets, daily range): BP systolic 118–138; BP diastolic 58–96; PULSE 59–102; RESP 16–21; TEMP 36.4; O2SAT 97–100
--- NOTE | ~2022-03-22 | CT_ITS ---
EXAMINATION: CT abdomen pelvis w con DATE: 03/22/2022 13:13 INDICATION: Low abdominal pain, anemia. Hemorrhagic cyst. TECHNIQUE: Computed tomography (CT) of the abdomen and pelvis was performed with 100 cc Omnipaque 350 intravenous contrast. The dose-length product was 1448.01 mGy-cm. Automated exposure control and ite rative reconstruction technique were employed. COMPARISON: CT dated 03/17/2022 FINDINGS: Lung bases are unremarkable. Heart size normal. No significant pleural or pericardial effus ion. Status post cholecystectomy. Nonobstructive bowel gas pattern. Low-density lesion in the right o vary, most likely benign functional cyst. Colonic diverticulosis without evidence for diverticulitis. Tiny fat-containing umbilical hernia. No free air or free fluid. No significant vascular abnormality . No lymphadenopathy. Normal appendix. Status post cholecystectomy. Mild fatty infiltration of the li gretchen. The spleen, pancreas, adrenal glands and kidneys are unremarkable. No acute osseous abnormality. There is a screw transfixing the right femoral neck/head. IMPRESSION: 1. No acute abdominal abnormality. Reviewed, dictated and finalized at location A.
--- NOTE | ~2022-03-22 | US_ITS ---
EXAMINATION: US pelvic complete w TV DATE: 03/22/2022 10:11 INDICATION: Hemorrhagic right ovarian cyst. Comparison:Ultrasound dated 03/17/2022 TECHNIQUE: Multiple transabdominal and endovaginal sonographic images of the pelvis performed. FINDINGS: The uterus measures 7.2 x 2.7 cm greatest sagittal dimension.. The endometrial complex chana ures 6 mm.. The right ovary measures 4.8 x 3.4 x 3.5 cm and the left ovary measures 2.4 x 2 x 1.9 cm. There are small follicles in each ovary. Normal doppler signal in both ovaries. There is a right ovarian cyst m easuring 4.2 x 2.4 x 3.5 cm. There is a left ovarian cyst measuring 1.5 cm. There is no free fluid in the pelvis. There are no abnormal masses seen on either side. IMPRESSION: 1. Bilateral ovarian cysts, largest in the right ovary measuring up to 4.2 cm, without significant ch licha from prior study allowing for technique. Reviewed, dictated and finalized at location A. IMPRESSION: 1. Bilateral ovarian cysts, largest in the right ovary measuring up to 4.2 cm, without significant change from prior study allowing for technique.
--- NOTE | 2022-03-22 09:32 | ED.FEMALEGU ---
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 Patient reports she was seen in the ED here last Tuesday at which point she was diagnosed with a 4.2 cm hemorrhagic cyst via US. She reports she has continued to have persistent vaginal bleeding and lower abdominal pain. Bleeding has decreased slightly but pain became worse over the weekend. She has been taking ibuprofen at home with minimal relief. Last took ibuprofen at 6 AM this morning. Patient is unable to be seen by her CAN PUSHER until the end of April. She also reports having nausea and diarrhea, but denies vomiting, fever, chest pain, SOB. Related Data Home Medications Medication Instructions Recorded Confirmed famotidine 40 mg tablet (Pepcid) 40 mg PO DAILY 08/10/21 08/12/21 ondansetron 8 mg disintegrating 8 mg translingual Q4-6H 08/10/21 08/12/21 tablet Allergies Allergy/AdvReac Type Severity Reaction Status Date / Time codeine Allergy Mild Jittery Verified 03/22/22 09:39 hydrocodone [From Vicodin] Allergy Mild rash Verified 03/22/22 09:39 morphine Allergy Mild Itching Verified 03/22/22 09:39 oxycodone Allergy Mild Itching Verified 03/22/22 09:39 Review of Systems Review of Systems: CONSTITUTIONAL: Denies fever. CARDIOVASCULAR: Denies chest pain. RESPIRATORY: Denies dyspnea. GASTROINTESTINAL: Reports lower abdominal pain, nausea, diarrhea. Denies rectal bleeding, vomiting. GENITOURINARY: Reports vaginal bleeding. Denies dysuria or hematuria. All systems reviewed & are unremarkable except as noted in HPI and below PMFSH Past Medical History Medical History Anemia Anxiety Bipolar 1 disorder Chronic shortness of breath Diabetes Headache, migraine Hypersomnia Morbid obesity Nausea PCOS (polycystic ovarian syndrome) Unspecified asthma Surgical History Surgical History History of tonsillectomy Family History Family History Mother Diabetes mellitus Other Alcoholism Anxiety Cancer Depression Family history of malignant neoplasm Hypertension Social History Social History Social History: not employed, lives with her girlfriend Nevaeh, mother, grandmother, sister/ sister's girlfriend, 2 dogs and 4 rabbits, several family members smoke cigarettes Smoking status: Former smoker Tobacco type: e-cigarettes/vaping Alcohol intake: current Drinks per week: 2 Substance use: never Substance use type: does not use Spiritual care concerns: No Exam Narrative: GENERAL: Well appearing, morbidly obese, non-toxic, in no acute distress. HEAD: Normocephalic, atraumatic. NECK: Supple. No adenopathy, no masses. RESPIRATORY: Airway patent, respirations nonlabored. Clear to auscultation bilaterally, no rales, rhonchi, wheezing. CARDIOVASCULAR: Regular rate and rhythm without murmurs, rubs, or gallops. Peripheral pulses 2+ and equal bilaterally. ABDOMINAL: Soft, diffuse tenderness throughout abdomen, worst in right lower abdomen. Nondistended, no hepatosplenomegaly. Normoactive BS. PELVIC: Normal external genitalia. Normal appearing cervix, scant blood coming from os. No significant bleeding in vaginal vault. No pooling of blood or signs of hemorrhage. MUSCULOSKELETAL: Moves all extremities. Strength/ROM intact without gross deformities. SKIN: Warm, dry, normal color. No rashes. NEURO: A&O X3. Speech clear. Cranial nerves II-XII grossly intact. Steady gait. No ataxic movements. PSYCH
[2022-03-22] MEDS: ONDANSETRON INJ 4 MG/2 ML VIAL IV PUSH (10:06)
[2022-03-22 10:22] LABS: Alanine Aminotransferase 13 U/L (6-35); Albumin Level 4.1 g/dL (3.5-5.1); Alkaline Phosphatase 48 U/L (38-126); Anion Gap 14 mmol/L (8-16); Aspartate Amino Transferase 16 U/L (14-36); Bilirubin,Total 0.2 mg/dL (0.2-1.3); Blood Urea Nitrogen 9 mg/dL (7-17); Calcium 8.7 mg/dL (8.4-10.2); Carbon Dioxide 23 mmol/L (22-30); Chloride 104 mmol/L (98-107); Estimated CRCL calculation 148 ml/min; Estimated Glomerular Filt Rate > 60; Glucose 117 mg/dL (65-110); Potassium 3.8 mmol/L (3.4-5.0); Sodium 141 mmol/L (137-145)
[2022-03-22 10:25] LABS: Basophils Percent Auto 0.4 % (0.2-1.2); Eosinophils Absolute Auto 0.1 K/mm3 (0-0.3); Eosinophils Percent Auto 1.4 % (0-4.4); Hematocrit 25.6 % (37.0-47.0); Hemoglobin 7.5 g/dL (12.0-15.0); Immature Granulocyte Absolute 0.03 K/mm3 (0.00-0.031); Immature Granulocyte Percent A 0.3 % (0-0.5); Lymphocytes Absolute Auto 3.42 K/mm3 (0.9-3.2); Lymphocytes Percent Auto 35.7 % (18.3-44.2); Mean Corpuscular HGB Conc 29.3 g/dl (32-36); Mean Corpuscular Volume 78.5 fl (80-100); Mean Platelet Volume 9.3 fl (7.4-10.4); Monocytes Absolute Auto 0.7 K/mm3 (0.1-0.6); Monocytes Percent Auto 7.1 % (2.6-8.5); Neutrophils Absolute Auto 5.3 K/mm3 (1.3-6.7); Neutrophils Percent Auto 55.1 % (45.5-73.1); Platelet Count Result 542 k/mm3 (150-375); Red Blood Count 3.26 M/mm3 (4.2-5.4); Red Cell Distribution Width 15.9 % (11.5-14.5); White Blood Count 9.6 K/mm3 (4.5-10.0)
[2022-03-22 10:43] LABS: Hypochromasia 1+ (NORMAL); Platelet Estimate Increased (Adequate)
[2022-03-22 10:44] LABS: Anisocytosis 1+ (NORMAL); Ovalocytes 1+ (NORMAL); Poikilocytosis 1+ (NORMAL)
[2022-03-22] MEDS: KETOROLAC 30 MG/ML VIAL (*BKC) IV PUSH (12:08)
[2022-03-22] MEDS: SODIUM CHLORIDE 0.9% IV 1,000 ML 999 ML IV CONT (13:32)
== END 2022-03-22 15:35 | disposition home or self-care (01) ==
PROVIDERS: Physician Assistant; Emergency Provider Emergency Medicine; PCP Family Medicine
DX: E28.2 Polycystic ovarian syndrome (principal); D64.9 Anemia, unspecified; E11.9 Type 2 diabetes mellitus without complications; J45.909 Unspecified asthma, uncomplicated; E66.01 Morbid (severe) obesity due to excess calories; Z68.44 Body mass index [BMI] 60.0-69.9, adult; Z87.891 Personal history of nicotine dependence
CPT/HCPCS: 36415; 74177; 76830; 76856; 80053; 81025; 85025; 96361; 96365; 96375; 99284; J0131; J1885; J2405; J7030; Q9967

== ENCOUNTER 2023-09-28 13:00 | Outpatient (RCR) | payer OTHER, SELFPAY ==
--- NOTE | 2023-08-17 15:42 | PTOPEVAL1 ---
Assessment and note entered by Daniel Martin Evaluation Information Assessment Status Evaluation Diagnosis cervicalgia, low back pain Onset 08/17/22 Subjective Information Pt. reports that she has had worsening neck and low back pain for about 1 to 1 1/2 years. She reports that pain first began when she was about 13 years old in her low back. She describes tightness and tenderness along the sides of the neck and also along the described paraspinals of the low back. She states that she will experience numbness and tingling in both the arms and legs. Pt. reports she is not currently working and has applied for disability. She reports that she cannot shower without help and her girlfriend has to help her with showers because she cannot stand long enough. She reports that she can stand for 10 minutes when pain is mild and when pain is intense she can only stand for 2-3 minutes. She reports that she is doing 20 minutes of Yoga 1x/ week. Pt. reports that at least 90% of the day she is sitting or laying down. She reports that she cannot sit in one position for any duration. Pt. reports that the total amount of sleep that she gets is approximately 3 hours a night. Pt. report that her goal is to care for herself better , and be able to stand for longer duration and be able to turn her head without pain. Reported Pain Level Pain Score 5,8: Self Report Assessment PT Clinical Summary Pt. is a 27 year old female who enters the clinic with chronic low back and neck pain. She presents with impaired postural awareness, impaired endurance, impaired l.e., core and u.e. strength, and pain. Continued skilled PT is indicated in order to improve these areas to allow the pt. to improve comfort and efficiency with IADL performance. Plan of Care Interventions Electrical Stimulation,Hot Pack/Cold Pack,Manual Therapy,Neuro Re-education,Patient/Caregiver Educati,Therapeutic Activities,Therapeutic Exercise,Self-Care/Home Management PT Services Indicated Yes Treatment Frequency and 2x/week x 10 visits Duration These treatments will address the objective and functional deficits as defined above. The patient will be advanced safely and appropriately in order for the patient to progress towards his/her prior level of function. Additional exercises will be introduced and as well as a comprehensive home exercise program upon discharge, if
--- NOTE | 2023-08-17 15:43 | OPREHPOC ---
Outpatient Therapy Plan of Care This is a Multidisciplinary Plan of Care that may contain components documented by all disciplines (PT, OT, and ST.) PT Problem 1 PT Problem #1 Knowledge Deficit PT Goal 1 Goal Pt. will be independent with a HEP addressing postural control. Target Visit 2 PT Problem 2 PT Problem #2 Pain PT Goal 1 Goal Pt. will report pain levels at 7/10 at worst in a 2 week period. Target Visit 10 PT Problem 3 PT Problem #3 Impaired Functional Mobil PT Goal 1 Goal Pt. will be able to complete the 6 minute walk test with a distance greater than 500' indicating improved endurance and gait efficiency PT Goal 2 Goal Pt. will be able to stand for a duration of 20 minutes in order to perform independent grooming and bathing activities at home. PT Problem 4 PT Problem #4 Impaired Strength PT Goal 1 Goal pt. will present with 4+/5 bilateral hip extension and hip abduction strength in order to improve stability and endurance with standing activities.
--- NOTE | 2023-09-15 11:55 | PCPTNOTE ---
Pt canceled due to having too much pain to come in.
--- NOTE | 2023-09-22 15:06 | PCPTNOTE ---
Pt. cancelled her appointment today stating she was sick. Daniel Martin, MPT
--- NOTE | 2023-09-28 13:53 | PTOPDC ---
Assessment and note entered by Daniel Martin Evaluation Information Assessment Status Discharge Diagnosis cervicalgia, low back pain Onset 08/17/22 Subjective Information Pt. reports that she has noticed she is able to stand for about 20 minutes before having to sit. She states that pain continues to be intense and she will be undergoing MRI due to the intense pain . She states that she notices she is able to walk over a further distance, but has not yet achieved her goal of walking for 10 minutes. At this time pt. is hopeful to receive injections and states that she will continue to perform exercise on her own. Reported Pain Level Pain Score 6,6: Self Report Assessment PT Clinical Summary Pt. demonstrates significant improvements in functional mobility and strength. Despite these improvements she continues to provide subjective reports of pain. At this time pt. is encouraged to continue with her HEP and will be discharged from our care. Plan of Care PT Services Indicated No
== END 2023-09-28 14:15 | disposition home or self-care (01) ==
LOC: ANHPT 13:00
PROVIDERS: PCP Family Medicine; Visit Provider Family Medicine
DX: M54.2 Cervicalgia (principal); M54.50 Low back pain, unspecified
CPT/HCPCS: 97014; 97110; 97161; 97530; 97750; G0283

== ENCOUNTER 2024-05-06 10:50 | Emergency (ER) | payer OTHER, SELFPAY ==
--- NOTE | 2024-05-06 10:54 | ED.GENADULT ---
HPI - General Adult General Chief complaint: Extremity Injury, Lower Stated complaint: right big toe issue Time Seen by Provider: 05/06/24 11:03 Source: patient, RN notes reviewed and old records reviewed Mode of arrival: ambulatory Limitations: no limitations History of Present Illness HPI narrative: 28-year-old female presents to the [facility] with complaints of medial right great toe redness, swelling. States it started as an ingrown toenail 2 weeks ago. Has been applying Neosporin and popped the area with a needle. Redness on the medial aspect of the great toe at the nail bed. Swelling noted. No drainage, no fluctuance. Treatments prior to arrival: other (Neosporin) Related Data Home Medications Medication Instructions Recorded Confirmed famotidine 40 mg tablet (Pepcid) 40 mg PO DAILY 08/10/21 05/06/24 ondansetron 8 mg disintegrating 8 mg translingual Q4-6H 08/10/21 05/06/24 tablet Allergies Allergy/AdvReac Type Severity Reaction Status Date / Time codeine Allergy Mild Jittery Verified 05/06/24 11:08 hydrocodone [From Vicodin] Allergy Mild rash Verified 05/06/24 11:08 morphine Allergy Mild Itching Verified 05/06/24 11:08 oxycodone Allergy Mild Itching Verified 05/06/24 11:08 Review of Systems Review of Systems: All systems reviewed & are unremarkable except as noted in HPI and below Constitutional: Constitutional: Reports no additional constitutional complaints ENT: Reports system reviewed and no additional complaints, except as documented Cardiovascular: Cardiovascular: Reports no additional cardiovascular complaints, Denies chest pain and Denies dyspnea Respiratory: Respiratory: Reports no additional respiratory complaints, Denies chest congestion, Denies cough and Denies dyspnea Gastrointestinal: Gastrointestinal: Reports no additional gastrointestinal complaints, Denies abdominal pain, Denies nausea and Denies vomiting Musculoskeletal: Musculoskeletal: Reports no additional musculoskeletal complaints Integumentary/Breasts: Skin/Breast: Reports as per HPI, Denies nail changes and Reports wounds PMFSH Past Medical History Medical History Anemia Anxiety Bipolar 1 disorder Chronic shortness of breath Diabetes Headache, migraine Hypersomnia Morbid obesity Nausea PCOS (polycystic ovarian syndrome) Unspecified asthma Surgical History Surgical History History of tonsillectomy Family History Family History Mother Diabetes mellitus Other Alcoholism Anxiety Cancer Depression Family history of malignant neoplasm Hypertension Social History Social History Social History: not employed, lives with her girlfriend Nevaeh, mother, grandmother, sister/ sister's girlfriend, 2 dogs and 4 rabbits, several family members smoke cigarettes Smoking status: Former smoker Tobacco type: e-cigarettes/vaping Alcohol intake: current Drinks per week: 2 Substance use: never Substance use type: does not use Living arrangements: with family Occupation/Education: unemployed Spiritual care concerns: No Comments At the time of my signature, I reviewed and agree with the nursing past medical, surgical, social, and family history. There is no relevant family history pertinent to the patient complaint. Exam Const: General: cooperative, healthy appearing, comfortable, no acute distress, well developed, alert and well nourished Nutritional Appearance: well nourished and obese morbidly obese Orientation/consciousness: patient oriented x3 Limitations: no limitations HENMT: Head: normal to inspection Ears: hearing grossly normal bilaterally and external ears normal Face/Nose/Sinus: Normal external nose present, normal facial exam and face symmetric Face and sinus: normal facial exam and face symmetric Eyes: General: appearance normal, both eyes and all related structures Alignment and Position: alignment normal Periorbital: periorbital findings normal Neck: Neck: normal visual inspection, full ROM, no lymphadenopathy and no meningeal signs Chest: Chest palpation & inspection: normal inspection of the chest Resp: Effort & Inspection: normal respiratory effort and able to speak in complete sentences Cardio: Rate: regular rate Skin: General skin exam: normal color and no rashes or lesions noted Lesions: no lesions Rashes: no rashes Other: Drainage which, redness at the medial aspect of the right great toe. No fluctuance. Mild cellulitic changes noted. Neuro: General: patient oriented x3, gait normal, tone normal, moves all extremities and no meningeal signs Cognition (Neuro): normal cognition Speech: normal speech Gait exam (Neuro): Normal gait present Extrem: General: normal to inspection, full ROM, capillary refill normal and normal gait Psych: Appearance: grossly normal and well kempt Mental Status: mental status grossly normal Speech and movement: Normal speech and movement present and Clear speech present Affect: normal affect Attitude: cooperative Course Course Level of Care: Express Care Visit Vital Signs Vital signs: Vital Signs Temperature 97.3 F L 05/06/24 11:02 Pulse Rate 80 05/06/24 11:02 Respiratory Rate 16 05/06/24 11:02 Blood Pressure 137/111 H 05/06/24 11:02 Pulse Oximetry 98 05/06/24 11:02 Oxygen Delivery Room Air 05/06/24 11:02 Temperature 97.3 F L 05/06/24 11:02 Pulse Rate 80 05/06/24 11:02 Respiratory Rate 16 05/06/24 11:02 Blood Pressure 137/111 H 05/06/24 11:02 Pulse Oximetry 98 05/06/24 11:02 Oxygen Delivery Room Air 05/06/24 11:02 Reviewed Medical Decision Making MDM Narrative Medical decision making narrative: Patient sitting comfortably in exam room. Nontoxic, vitals stable. Patient in no acute distress Patient presents for concerns for paronychia. Already drained it herself. Redness, inflammation. Patient appropriate for outpatient treatment with close follow-up Discharge instructions reviewed with patient, as well as provided in writing per nursing staff. The instructions also include specific and strict return/GO TO THE ER as well as f/u information. All questions have been answered, and the patient deny any further questions with discharge and discharge plan. Some parts of this dictation were generated by voice recognition software and may contain typographical and/or grammatical inaccuracies. Differential Diagnosis Differential Diagnosis: Paronychia, cellulitis Medical Records Medical records reviewed: Yes I reviewed the external patient's medical records. Vital Signs Vital Signs: Vital Signs Temperature 97.3 F L 05/06/24 11:02 Pulse Rate 80 05/06/24 11:02 Respiratory Rate 16 05/06/24 11:02 Blood Pressure 137/111 H 05/06/24 11:02 Pulse Oximetry 98 05/06/24 11:02 Oxygen Delivery Room Air 05/06/24 11:02 Temperature 97.3 F L 05/06/24 11:02 Pulse Rate 80 05/06/24 11:02 Respiratory Rate 16 05/06/24 11:02 Blood Pressure 137/111 H 05/06/24 11:02 Pulse Oximetry 98 05/06/24 11:02 Oxygen Delivery Room Air 05/06/24 11:02 Reviewed Lab Data Lab results reviewed: Yes I reviewed the patient's lab results. Labs: Reviewed Critical Care Time Critical Care Time Critical Care Time: No Discharge Plan Discharge Clinical Impression: Paronychia of great toe of right foot Patient Disposition: Home, Self-Care Condition: Stable Instructions: Antibiotic Form, Paronychia (ED) Additional Instructions: Soak twice a day for 20 minutes in warm soapy water with Epson salt. Take antibiotic as prescribed Be sure to wear clean socks all the time. Follow-up with podiatry Follow-up with primary care provider to have your blood pressure rechecked. Today your blood pressure was elevated at 137/111. For new or worsening symptoms go directly to the emergency room Patient Language: Finnish Prescriptions: New cephalexin 500 mg capsule 500 mg PO QID 7 Days Qty: 28 0RF No Action famotidine [Pepcid] 40 mg tablet 40 mg PO DAILY ondansetron 8 mg tablet,disintegrating 8 mg translingual Q4-6H omeprazole 20 mg capsule,delayed release(DR/EC) 20 mg PO DAILY Qty: 30 2RF Follow-up/Referrals: Rajni,SHAYLA Bee [Primary Care Provider] - 2 Weeks ([facility] follow up blood pressure check. ) Stand Alone Forms: Work/School Release IP Time of Disposition: 11:37
[2024-05-06 11:02] VITALS: BP 137/111; PULSE 80; RESP 16; TEMP 36.3; O2SAT 98
== END 2024-05-06 11:53 | disposition home or self-care (01) ==
PROVIDERS: Emergency Provider Nurse Practitioner; PCP Nurse Practitioner Family
DX: L03.031 Cellulitis of right toe (principal); E11.9 Type 2 diabetes mellitus without complications; Z87.891 Personal history of nicotine dependence
CPT/HCPCS: 99213; G0463